=== PATIENT | male | born 1950 | race Caucasian/White ===

== ENCOUNTER 2022-08-01 06:44 | Day surgery (SDC) | payer MEDICARE ==
[2022-07-28 11:59] VITALS: BMI 30.5
[~2022-08-01 06:44] MED LIST: LACTATED RINGERS 1,000 ML IV SCH; LIDOCAINE 1% (10MG/ML) FOR IV START INTRADERMA PRN
[2022-08-01 07:21] VITALS: TEMP 97.6
[2022-08-01] MEDS ORDERED: PROPOFOL 10 MG/ML 20 ML VIAL IV ONE (08:05)
[2022-08-01] MEDS ORDERED: LIDOCAINE 2% INJ 20 MG/ML (2 ML VIAL) ONE (08:05)
--- NOTE | 2022-08-01 08:35 | P.PCN ---
Date of Procedure: 08/01/22 Procedure(s) Performed: Brief history: Patient is a pleasant 72-year-old white male scheduled for an elective upper endoscopy as well as colonoscopy as a part of evaluation of GERD and change in bowel habits for the last 6 months duration. His been having loose bowel movements a day with in 2-4 a day with no bleeding. He has occasional rectal urgency. He also has prior history of colon polyps and his last colonoscopy was in August11/20/2015. Procedure performed: Esophagogastroduodenoscopy with biopsy Colonoscopy with random biopsy Preoperative diagnosis: GERD Chronic diarrhea Anesthesia: MAC Procedure: After informed consent was obtained from the patient was brought into the endoscopy unit and IV sedation was administered by anesthesia under continuous monitoring. Initially upper endoscopy was done. The Olympus GF 160 video endoscope was inserted inserted into the mouth and esophagus intubated without any difficulty and was gradually advanced into the stomach and duodenum and carefully examined. The bulb and second part of the duodenum appeared normal. The scope was then withdrawn into the stomach adequately insufflated with air and upon careful examination the antrum had mild gastritis and biopsies were done from this area. The body, cardia and fundus appeared normal. The scope was then withdrawn into the esophagus. The GE junction was located at 40 cm to the incisors. Small hiatal hernia noted. There was a 5 mm tongue of Acuña's appearing mucosa just proximal to the GE junction status post biopsy. Rest of the esophagus appeared normal. Patient tolerated the procedure well. At this time the patient continued to remain sedation. Initial digital rectal examination was normal. Olympus CF 160 video colonoscope was then inserted into the rectum and gradually advanced to the cecum without any difficulty. Careful examination was performed as the scope was gradually being withdrawn. The prep was excellent. The cecum, ascending colon, transverse colon, descending colon, sigmoid colon and rectum appeared normal. Scattered sigmoid diverticulosis seen. Random biopsies were done from ascending and descending colon to rule out microscopic/collagenous colitis Retroflexion was performed in the rectum and no lesions were noted. Patient tolerated the procedure well. Impression: 1. Upper Endoscopy revealed mild antral gastritis, small hiatal hernia and short segment Acuña's esophagus 2. Colonoscopy revealed scattered sigmoid diverticulosis but no evidence of colitis or colorectal neoplasia Recommendations: Findings of this examination were discussed with the patient as well as his family. He was advised to follow with the biopsy results. Continue with omeprazole 20 mg daily and follow antireflux measures. He'll be seen in office in 3-4 weeks
[2022-08-01 08:55] VITALS: BP 118/79; PULSE 58; RESP 18
== END 2022-08-01 09:31 | disposition home or self-care (01) ==
LOC: ORWHC2ENDO 06:44
PROVIDERS: ATTEND Internal Medicine Gastroenterology
DX: K29.50 Unspecified chronic gastritis without bleeding (principal); K57.30 Diverticulosis of large intestine without perforation or abscess without bleeding; K44.9 Diaphragmatic hernia without obstruction or gangrene; K22.70 Barrett's esophagus without dysplasia; I10 Essential (primary) hypertension; I49.9 Cardiac arrhythmia, unspecified; I71.40 Abdominal aortic aneurysm, without rupture, unspecified; K21.9 Gastro-esophageal reflux disease without esophagitis; Z79.01 Long term (current) use of anticoagulants; Z79.899 Other long term (current) drug therapy; Z86.79 Personal history of other diseases of the circulatory system; Z88.8 Allergy status to other drugs, medicaments and biological substances
CPT/HCPCS: 88305; 45380; 43239; J2704; J2001

== ENCOUNTER 2025-04-30 11:47 | Day surgery (SDC) | payer MEDICARE ==
--- NOTE | 2025-04-30 07:00 | P.GSHP ---
History of Present Illness H&P Date: 04/30/25 Chief Complaint: Bladder pain, urinary hesitancy The patient is a 75-year-old white male with a history of kidney stones, for which he has previously undergone ESWL and ureteroscopy with laser lithotripsy. He has recently experienced right sided lower back pain and urinary hesitancy. CT scan of the pelvis shows 4 bladder calculi measuring up to 1.8 cm in size. He now comes for cystolithotripsy. The CT scan of the pelvis images were reviewed. The lower half of the kidneys could be seen, showing no evidence of renal calculi or hydronephrosis. - Cardiovascular Cardiovascular: Reports high blood pressure - Genitourinary (Male) Genitourinary: Reports as per HPI Past Medical History Past Medical History: Atrial Fibrillation, GERD/Reflux, Hypertension, Osteoarthritis (OA) Additional Past Medical History / Comment(s): AORTIC ANEURYSM DX 2020 echo less than 1 month ago minimal change,recent tear to left shoulder rotator cuff, History of Any Multi-Drug Resistant Organisms: None Reported Past Surgical History: Cholecystectomy, Hernia Repair, Orthopedic Surgery Additional Past Surgical History / Comment(s): shoulder lft rotator cuff repair, bunions, carpel tunnel, spurs on both feet, rt inguinal hernia Past Anesthesia/Blood Transfusion Reactions: No Reported Reaction Smoking Status: Never smoker - Past Family History Mother Family Medical History: Cancer Medications and Allergies Home Medications Medication Instructions Recorded Confirmed Type Multivitamin [Men's Multi-Vitamin] 1 each PO DAILY 08/02/16 04/27/25 History Potassium Chloride [Klor-Con 20] 20 meq PO DAILY 08/02/16 04/27/25 History Propafenone [Rythmol] 150 mg PO TID 08/02/16 04/27/25 History Warfarin [Coumadin] 5 mg PO DAILY 08/02/16 04/27/25 History lisinopriL [Zestril] 10 mg PO DAILY 08/02/16 04/27/25 History Ascorbic Acid [Vitamin C] 500 mg PO DAILY 07/28/22 04/27/25 History Cholecalciferol [Vitamin D3 (25 25 mcg PO DAILY 07/28/22 04/27/25 History Mcg = 1000 Iu)] Glucosamine/Chondr Cunningham A Sod [Osteo 1 each PO DAILY 07/28/22 04/27/25 History Bi-Flex Caplet] Pantoprazole [Protonix] 40 mg PO DAILY PRN 04/27/25 04/27/25 History Tamsulosin HCl [Flomax] 0.4 mg PO DAILY 04/27/25 04/27/25 History Allergies Allergy/AdvReac Type Severity Reaction Status Date / Time meperidine [From Demerol] Allergy Anaphylaxis Verified 04/27/25 08:47 venom-honey bee Allergy Swelling Verified 04/27/25 08:47 [bee venom (honey bee)] artificial sweeteners AdvReac Unknown Uncoded 04/27/25 09:07 Surgical - Exam - General well developed, well nourished, no distress - Respiratory normal respiratory effort - Abdomen Abdomen: soft, non tender, no guarding, no rigid, no rebound Hernia: inguinal - Genitourinary normal penis with no external lesions, testicles non-tender - Rectum Rectum: normal sphincter tone, no masses, other (Prostate moderately enlarged but smooth) - Psychiatric oriented to time, oriented to person, oriented to place, speech is normal, memory intact Results - Imaging CT scan - pelvis: report reviewed, image reviewed Assessment and Plan (1) Calculus in bladder Status: Acute Code(s): N21.0 - CALCULUS IN BLADDER SNOMED Code(s): 03435688 Plan: Cystoscopy with cystolithotripsy. The procedure has been reviewed in detail with the patient. He has been made aware of potential risks, which include anesthesia, bleeding, infection, bladder perforation, and postoperative urinary retention.
[~2025-04-30 11:47] MED LIST changes: -LACTATED RINGERS 1,000 ML IV SCH; -LIDOCAINE 1% (10MG/ML) FOR IV START INTRADERMA PRN; +MIDAZOLAM 2 MG/2 ML VIAL IV PRN; +fentaNYL (PF) 50 MCG/ML 2 ML AMP IV PRN
[2025-04-30] MEDS: IV FLUID CONTINUATION 1,000 ML IV ONE (12:10)
[2025-04-30] MEDS: DEXAMETHASONE SOD PHOSPHATE 4 MG/ML 1 ML VIAL IV ONE (12:54)
[2025-04-30] MEDS: ONDANSETRON 4 MG/2 ML VIAL IVP ONE (12:54)
[2025-04-30] MEDS: LACTATED RINGERS 1,000 ML IV SCH (12:54)
[2025-04-30 13:26] LABS: INR 1.3 (<1.2); Prothrombin Time 13.8 sec (10.0-12.5)
[2025-04-30] MEDS ORDERED: GLYCOPYRROLATE 0.2 MG/ML 2 ML VIAL ONE (14:04)
[2025-04-30] MEDS ORDERED: fentaNYL (PF) 50 MCG/ML 2 ML AMP ONE (14:04)
[2025-04-30] MEDS ORDERED: LIDOCAINE 1% INJ 10MG/ML (20 ML MDV) ONE (14:04)
[2025-04-30] MEDS ORDERED: ePHEDrine 50 MG/ML 1 ML VIAL ONE (14:04)
[2025-04-30] MEDS ORDERED: SUCCINYLCHOLINE CHLORIDE 200 MG/10 ML VIAL IV ONE (14:04)
[2025-04-30] MEDS ORDERED: PROPOFOL 10 MG/ML 20 ML VIAL IV ONE (14:04)
[2025-04-30] MEDS ORDERED: PHENYLEPHRINE 10 MG/ML VIAL ONE (14:04)
--- NOTE | 2025-04-30 15:10 | P.OP ---
Date of Procedure: 04/30/25 Preoperative Diagnosis: Bladder calculi Postoperative Diagnosis: Same Procedure(s) Performed: Cystoscopy, cystolithotripsy, fulguration of bleeders Anesthesia: JEROME Surgeon: Anam Tadeo Estimated Blood Loss (ml): 10 IV fluids (ml): 500 Pathology: other (Bladder calculus fragments, sent for chemical analysis) Condition: stable Disposition: PACU Indications for Procedure: The patient is a 75-year-old white male with a history of kidney stones, for which he has previously undergone ESWL and ureteroscopy with laser lithotripsy. He has recently experienced right sided lower back pain and urinary hesitancy. CT scan of the pelvis shows 4 bladder calculi measuring up to 1.8 cm in size. He now comes for cystolithotripsy. The CT scan of the pelvis images were reviewed. The lower half of the kidneys could be seen, showing no evidence of renal calculi or hydronephrosis. Operative Findings: 4 bladder calculi measuring up to 1.8 cm in size Description of Procedure: The patient was taken to the operating room and placed in the dorsal lithotomy position, with legs supported in Talat stirrups. The external genitalia was prepped and draped sterilely. The 30 lens was used to introduce the 21-[place] Veliz cystoscopic sheath through the urethra and into the bladder under direct vision. The urethra appeared normal. The prostate showed evidence of lateral lobe enlargement consistent with the patient's age. The bladder was examined in its entirety. The ureteral orifices appeared normal. A total of 4 calculi were seen. No tumors were seen. No diverticuli were seen. Using the 1000 micron Holmium laser probe, lithotripsy was performed. Lithotripsy was continued until all calculus fragments could be removed using the [employer] evacuator. Once this was completed, the bladder was inspected. There was no active bleeding within the bladder, and no evidence of bladder perforation. Minor oozing was noted from the posterior vesical neck. The Bugbee electrode was used to fulgurate this bleeder, attaining excellent hemostasis. An 18-[place] Fair catheter was placed. The return was essentially clear. The patient tolerated the procedure well was taken to the recovery room in stable condition.
[2025-04-30 15:30] VITALS: TEMP 97
[2025-04-30 16:31] VITALS: RESP 16
[2025-04-30 16:36] VITALS: BP 140/97; PULSE 81
== END 2025-04-30 17:06 | disposition home or self-care (01) ==
LOC: OR 11:47
PROVIDERS: ATTEND Urology
DX: N21.0 Calculus in bladder (principal); Z87.442 Personal history of urinary calculi; I48.91 Unspecified atrial fibrillation; I10 Essential (primary) hypertension; K21.9 Gastro-esophageal reflux disease without esophagitis; M19.90 Unspecified osteoarthritis, unspecified site; I71.9 Aortic aneurysm of unspecified site, without rupture; Z79.01 Long term (current) use of anticoagulants; Z79.899 Other long term (current) drug therapy; Z87.892 Personal history of anaphylaxis; Z88.5 Allergy status to narcotic agent; Z91.030 Bee allergy status; Z91.02 Food additives allergy status
CPT/HCPCS: 85610; 82365; 52317; 52214; J1100; J0690; J2405